=== PATIENT | male | born 1985 | race Caucasian/White ===

== ENCOUNTER → 2017-09-24 12:47 | Outpatient (CLI) | payer OTHER, MEDICAID, SELFPAY ==
--- NOTE | 2017-09-24 | DI.US.S_ITS ---
PROCEDURE: US PARACENTESIS INDICATIONS: 32 year-old female with alcoholic cirrhosis and ascites. TECHNIQUE: The indications, alternatives, benefits, risks, and complications of the procedure were explained to the patient. Written informed consent was obtained and placed in the chart. The abdomen and pelvis were examined sonographically, and an appropriate site was chosen for paracentesis. The skin was prepared and draped in the usual sterile fashion, and 1% lidocaine was infiltrated from the skin down through the peritoneal surface. A 19-gauge catheter-covered needle was then introduced into the peritoneal space, the catheter was advanced and the needle was withdrawn, and thereafter peritoneal fluid was withdrawn. The catheter was then removed and a dressing was applied. The fluid was discarded if the clinician did not order diagnostic testing of the fluid. COMPARISON: None available. FINDINGS: Access site: Infraumbilical midline abdominal wall. Needle: One-Step centesis catheter with introducer needle. Fluid volume and description: 3.5 L of clear yellow fluid. Fluid sent for diagnostic testing: As ordered by referring clinician. Medications: 1% lidocaine for local anaesthesia. Complications: None. IMPRESSION: Successful ultrasound-guided diagnostic and therapeutic paracentesis. Dictated by: Ramírez Ferris M.D. on 09/24/2017 at 14:50 Approved by: Ramírez Ferris M.D. on 09/24/2017 at 14:51
[2017-09-24 14:19] LABS: Body Fluid Tot Nucleated Cells 231 /uL; Glucose Body Fluid 88 mg/dL; LDH Body Fluid 223 U/L; Total Protein Body Fluid 2.8 g/dL
[2017-09-24 14:21] LABS: Body Fluid Red Blood Cells 672 /uL
[2017-09-24 14:29] LABS: Body Fluid Appearance HAZY; Body Fluid Clotted? NO CLOTS PRESENT; Body Fluid Color YELLOW
[2017-09-24 15:03] LABS: Mononuclear WBC Body Fluid 93 %; Polynuclear WBC Body Fluid 7 %
== END ==
PROVIDERS: Visit Provider Family Medicine
DX: K70.31 Alcoholic cirrhosis of liver with ascites (principal)
CPT/HCPCS: 49083; 82945; 83615; 84157; 87070; 87075; 87077; 87147; 87186; 87205; 89051

== ENCOUNTER → 2017-12-08 12:52 | Outpatient (CLI) | payer OTHER, MEDICAID, SELFPAY | PROVIDERS: PCP Family Medicine; Visit Provider Internal Medicine | DX: S31.105S Unspecified open wound of abdominal wall, periumbilic region without penetration into peritoneal cavity, sequela (principal); L98.499 Non-pressure chronic ulcer of skin of other sites with unspecified severity; K74.60 Unspecified cirrhosis of liver | CPT/HCPCS: 99213 ==

== ENCOUNTER → 2017-12-08 14:15 | Outpatient (CLI) | payer OTHER, MEDICAID, SELFPAY ==
[2017-12-08 14:55] LABS: INR 1.2 (0.9-1.3); Prothrombin Time 13.4 SECONDS (10.1-12.7)
[2017-12-08 15:21] LABS: Prealbumin 13.8 mg/dL (17.6-36.0)
== END ==
PROVIDERS: PCP Family Medicine; Visit Provider Internal Medicine
DX: L08.9 Local infection of the skin and subcutaneous tissue, unspecified (principal)
CPT/HCPCS: 36415; 84134; 85610